=== PATIENT | female | born 1955 | race Caucasian/White ===

== ENCOUNTER 2017-09-23 18:19 | Emergency (ER) | payer MEDICAID ==
[~2017-09-23] VITALS: Ht 160 cm; Wt 63.6 kg
[~2017-09-23 18:19] MED LIST: CYCLOBENZAPRINE10 MG PO; DEPAKOTE125 MG PO; HYDROCODONE-APA1 TAB PO; MIRALAX17 GM PO; MORPHINE S10 MG/5 ML PO; VENTOLIN HFA18 GM INH; VITAMIN B-250 MG PO; ZANTAC150 MG PO
[2017-09-23 18:36] VITALS: Ht 160 cm; Wt 63.6 kg
[2017-09-23] MEDS ORDERED: TORADOL10 MG PO (20:34)
[2017-09-23 21:55] VITALS: BP 129/84
== END 2017-09-23 21:57 | disposition home or self-care (01) ==
LOC: D.ER 18:19
DX: S99.921A Unspecified injury of right foot, initial encounter (principal); W01.0XXA Fall on same level from slipping, tripping and stumbling without subsequent striking against object, initial encounter; Y93.89 Activity, other specified; Y92.019 Unspecified place in single-family (private) house as the place of occurrence of the external cause

== ENCOUNTER 2017-11-12 09:11 | Inpatient (IN) | payer MEDICAID ==
[~2017-11-12] VITALS: Ht 160 cm; Wt 62.1 kg
[~2017-11-12 09:11] MED LIST changes: +TORADOL10 MG PO
[2017-11-12 10:53] LABS: BASOPHILS 0.1 % (0-2); EOSINOPHILS 0 % (0-7); HEMATOCRIT 49.1 % (36.0-48.0); HEMOGLOBIN 16.5 g/dL (12-16); IMMATURE GRANULOCYTES 0.2 % (0-5); MCH 30.8 pg (26.0-34.0); MCHC 33.6 g/dL (31.0-37.0); MCV 91.8 fL (80.0-100.0); MEAN PLATELET VOLUME 10.1 fL (7.4-10.4); MONOCYTES 13.5 % (2-11); NEUTROPHILS 78.2 % (40-80); PLATELET COUNT 243 10x3/uL (130-400); RBC 5.35 10x6/uL (4.00-5.40); RDW 13.7 % (11.5-14.5); WBC 12.8 10x3/uL (4.8-10.8)
[2017-11-12 11:00] VITALS: BP 114/66
[2017-11-12 11:10] LABS: ALBUMIN 3.6 g/dL (3.4-5.0); ANION GAP 13.4 mmol/L (8-16); BILIRUBIN - TOTAL 0.63 mg/dL (0.2-1.3); CALCIUM 8.6 mg/dL (8.5-10.1); CARBON DIOXIDE 27.7 mmol/L (21.0-32.0); CREATININE - SERUM 1.1 mg/dL (0.6-1.3); POTASSIUM - SERUM 4.1 mmol/L (3.5-5.1); PROTEIN - SERUM 7.5 g/dL (6.4-8.2)
[2017-11-12 12:18] LABS: APPEARANCE TURBID (CLEAR); BILIRUBIN NEGATIVE (NEGATIVE); COLOR DK YELLOW (YELLOW); GLUCOSE NEGATIVE (NEGATIVE); KETONE NEGATIVE (NEGATIVE); NITRITE POSITIVE (NEGATIVE); PROTEIN TRACE mg/dL (NEGATIVE); SPECIFIC GRAVITY 1.025 (1.005-1.020)
[2017-11-12 12:19] LABS: BACTERIA MANY /hpf (NONE SEEN); CALCIUM OXALATE CRYSTALS 25-50 /hpf (NONE SEEN); EPITHELIAL CELLS 0-5 /hpf (0-5); HYALINE CAST OCC /lpf (NONE SEEN); MUCUS <1+ /lpf (NONE SEEN); RED CELLS - URINE 0-5 /hpf (0-5)
[2017-11-12 13:00] VITALS: BP 104/63
[2017-11-12 15:00] VITALS: BP 109/60
[2017-11-12 16:42] VITALS: BP 146/109
[2017-11-12 16:53] VITALS: BP 106/66
[2017-11-12 20:00] VITALS: BP 106/65
[2017-11-13] VITALS: BP 109/60
[2017-11-13 01:50] LABS: APPEARANCE CLOUDY (CLEAR); COLOR DK YELLOW (YELLOW)
[2017-11-13 01:51] LABS: BACTERIA MANY /hpf (NONE SEEN); BILIRUBIN NEGATIVE (NEGATIVE); EPITHELIAL CELLS RARE /hpf (0-5); GLUCOSE NEGATIVE (NEGATIVE); KETONE NEGATIVE (NEGATIVE); NITRITE POSITIVE (NEGATIVE); PROTEIN NEGATIVE (NEGATIVE); RED CELLS - URINE 0-5 /hpf (0-5); UROBILINOGEN NORMAL (NORMAL); WHITE CELLS - URINE 25-50 /hpf (0-5)
[2017-11-13 04:00] VITALS: BP 102/48
[2017-11-13 05:24] LABS: BASOPHILS 0.2 % (0-2); EOSINOPHILS 0.6 % (0-7); HEMATOCRIT 40.4 % (36.0-48.0); IMMATURE GRANULOCYTES 0.2 % (0-5); LYMPHOCYTES 15.3 % (15-50); MCH 29.7 pg (26.0-34.0); MCHC 32.4 g/dL (31.0-37.0); MCV 91.6 fL (80.0-100.0); MEAN PLATELET VOLUME 10.4 fL (7.4-10.4); MONOCYTES 16.5 % (2-11); NEUTROPHILS 67.2 % (40-80); PLATELET COUNT 206 10x3/uL (130-400); RBC 4.41 10x6/uL (4.00-5.40); RDW 13.8 % (11.5-14.5)
[2017-11-13 05:40] LABS: HEMOGLOBIN 13.1 g/dL (12-16); WBC 6.5 10x3/uL (4.8-10.8)
[2017-11-13 06:07] LABS: ANION GAP 10.8 mmol/L (8-16); BILIRUBIN - TOTAL 0.53 mg/dL (0.2-1.3); CALCIUM 7.6 mg/dL (8.5-10.1); CARBON DIOXIDE 25.3 mmol/L (21.0-32.0); CREATININE - SERUM 0.9 mg/dL (0.6-1.3); POTASSIUM - SERUM 4.1 mmol/L (3.5-5.1)
[2017-11-13 06:32] LABS: PROTEIN - SERUM 5.6 g/dL (6.4-8.2)
[2017-11-13 06:33] LABS: ALBUMIN 2.5 g/dL (3.4-5.0)
[2017-11-13 09:06] VITALS: BP 92/49
[2017-11-13 09:19] VITALS: BMI 24.2
[2017-11-13 16:11] VITALS: BP 104/60
[2017-11-13 21:27] VITALS: BP 100/52
[2017-11-14] VITALS: BP 91/51
[2017-11-14 04:00] VITALS: BP 117/62
[2017-11-14 05:45] LABS: BASOPHILS 0.2 % (0-2); EOSINOPHILS 2.8 % (0-7); HEMATOCRIT 36.7 % (36.0-48.0); HEMOGLOBIN 11.9 g/dL (12-16); IMMATURE GRANULOCYTES 0.2 % (0-5); MCHC 32.4 g/dL (31.0-37.0); MCV 92.4 fL (80.0-100.0); MONOCYTES 16.9 % (2-11); NEUTROPHILS 54.9 % (40-80); PLATELET COUNT 190 10x3/uL (130-400); RBC 3.97 10x6/uL (4.00-5.40); RDW 13.7 % (11.5-14.5)
[2017-11-14 06:47] LABS: ALBUMIN 2.2 g/dL (3.4-5.0); ALKALINE PHOSPHATASE 64 U/L (46-116); ALT (SGPT) 11 U/L (10-68); BILIRUBIN - TOTAL 0.44 mg/dL (0.2-1.3); CALC OSMOLALITY 268 mosm/kg (275-300); CALCIUM 7.9 mg/dL (8.5-10.1); CARBON DIOXIDE 23.3 mmol/L (21.0-32.0); CHLORIDE - SERUM 103 mmol/L (98-107); CREATININE - SERUM 0.8 mg/dL (0.6-1.3); GLUCOSE 95 mg/dL (74-106); MAGNESIUM - SERUM 1.9 mg/dL (1.8-2.4); PHOSPHOROUS 1.6 mg/dL (2.5-4.9); PROTEIN - SERUM 5.1 g/dL (6.4-8.2); SODIUM 134 mmol/L (136-145); eGFR NON AFRICAN AMERICAN 77 mL/min (90-120)
[2017-11-14 06:52] LABS: UREA NITROGEN 16 mg/dL (7-18)
[2017-11-14 08:15] VITALS: BP 99/56
[2017-11-14 12:19] VITALS: BP 103/59
[2017-11-14 16:00] VITALS: BP 103/55
[2017-11-15 01:46] VITALS: BP 131/65
[2017-11-15 04:32] LABS: BASOPHILS 0.2 % (0-2); EOSINOPHILS 4.8 % (0-7); HEMATOCRIT 33.5 % (36.0-48.0); HEMOGLOBIN 10.8 g/dL (12-16); IMMATURE GRANULOCYTES 0.2 % (0-5); LYMPHOCYTES 29.5 % (15-50); MCH 29.4 pg (26.0-34.0); MCHC 32.2 g/dL (31.0-37.0); MCV 91.3 fL (80.0-100.0); MEAN PLATELET VOLUME 9.7 fL (7.4-10.4); MONOCYTES 16.4 % (2-11); NEUTROPHILS 48.9 % (40-80); PLATELET COUNT 189 10x3/uL (130-400); RBC 3.67 10x6/uL (4.00-5.40); RDW 13.6 % (11.5-14.5)
[2017-11-15 04:47] LABS: WBC 4.2 10x3/uL (4.8-10.8)
[2017-11-15 05:16] LABS: ALKALINE PHOSPHATASE 60 U/L (46-116); ALT (SGPT) 10 U/L (10-68); BILIRUBIN - TOTAL 0.26 mg/dL (0.2-1.3); CALCIUM 7.5 mg/dL (8.5-10.1); CARBON DIOXIDE 25.9 mmol/L (21.0-32.0); CHLORIDE - SERUM 106 mmol/L (98-107); CREATININE - SERUM 0.6 mg/dL (0.6-1.3); GLUCOSE 88 mg/dL (74-106); MAGNESIUM - SERUM 1.7 mg/dL (1.8-2.4); POTASSIUM - SERUM 3.8 mmol/L (3.5-5.1); PROTEIN - SERUM 4.8 g/dL (6.4-8.2); SODIUM 138 mmol/L (136-145); eGFR NON AFRICAN AMERICAN > 90 mL/min (90-120)
[2017-11-15 05:20] LABS: CALC OSMOLALITY 272 mosm/kg (275-300); UREA NITROGEN 8 mg/dL (7-18)
[2017-11-15 05:43] VITALS: BP 115/59
[2017-11-15 08:20] VITALS: BP 108/67
[2017-11-15 13:16] VITALS: BP 132/64
[2017-11-15 17:05] VITALS: BP 127/67
[2017-11-15 20:35] VITALS: BP 140/59
[2017-11-16 01:28] VITALS: BP 116/53
[2017-11-16 04:19] VITALS: BP 134/64
[2017-11-16 05:08] LABS: BASOPHILS 0.3 % (0-2); EOSINOPHILS 3.9 % (0-7); HEMATOCRIT 32.7 % (36.0-48.0); HEMOGLOBIN 10.5 g/dL (12-16); LYMPHOCYTES 32.5 % (15-50); MCH 29.3 pg (26.0-34.0); MCHC 32.1 g/dL (31.0-37.0); MCV 91.3 fL (80.0-100.0); MEAN PLATELET VOLUME 9.7 fL (7.4-10.4); MONOCYTES 14.1 % (2-11); NEUTROPHILS 48.2 % (40-80); PLATELET COUNT 224 10x3/uL (130-400); RBC 3.58 10x6/uL (4.00-5.40); RDW 13.8 % (11.5-14.5); WBC 3.8 10x3/uL (4.8-10.8)
[2017-11-16 05:51] LABS: ALKALINE PHOSPHATASE 59 U/L (46-116); ALT (SGPT) 10 U/L (10-68); CALCIUM 7.6 mg/dL (8.5-10.1); CARBON DIOXIDE 24.6 mmol/L (21.0-32.0); CHLORIDE - SERUM 108 mmol/L (98-107); CREATININE - SERUM 0.6 mg/dL (0.6-1.3); GLUCOSE 88 mg/dL (74-106); POTASSIUM - SERUM 3.6 mmol/L (3.5-5.1); PROTEIN - SERUM 4.6 g/dL (6.4-8.2); SODIUM 140 mmol/L (136-145); eGFR NON AFRICAN AMERICAN > 90 mL/min (90-120)
[2017-11-16 05:59] LABS: CALC OSMOLALITY 274 mosm/kg (275-300); UREA NITROGEN 5 mg/dL (7-18)
[2017-11-16 08:20] VITALS: BP 130/64
[2017-11-16 12:16] VITALS: BP 131/43
[2017-11-16 16:29] VITALS: Ht 160 cm; Wt 62.1 kg
[2017-11-16 16:33] VITALS: BP 144/82
[2017-11-16 21:22] VITALS: BP 153/82
[2017-11-17 04:16] VITALS: BP 144/76
[2017-11-17 04:52] LABS: BASOPHILS 0.2 % (0-2); HEMATOCRIT 34.8 % (36.0-48.0); HEMOGLOBIN 11.3 g/dL (12-16); LYMPHOCYTES 27.4 % (15-50); MCH 29.4 pg (26.0-34.0); MCHC 32.5 g/dL (31.0-37.0); MCV 90.6 fL (80.0-100.0); MEAN PLATELET VOLUME 9.6 fL (7.4-10.4); MONOCYTES 13.4 % (2-11); PLATELET COUNT 250 10x3/uL (130-400); RBC 3.84 10x6/uL (4.00-5.40); RDW 13.9 % (11.5-14.5)
[2017-11-17 04:53] LABS: WBC 6.1 10x3/uL (4.8-10.8)
[2017-11-17 05:14] LABS: ALBUMIN 2.2 g/dL (3.4-5.0); ALKALINE PHOSPHATASE 65 U/L (46-116); BILIRUBIN - TOTAL 0.25 mg/dL (0.2-1.3); CALC OSMOLALITY 274 mosm/kg (275-300); CALCIUM 7.6 mg/dL (8.5-10.1); CHLORIDE - SERUM 108 mmol/L (98-107); CREATININE - SERUM 0.6 mg/dL (0.6-1.3); GLUCOSE 86 mg/dL (74-106); POTASSIUM - SERUM 3.4 mmol/L (3.5-5.1); PROTEIN - SERUM 4.9 g/dL (6.4-8.2); SODIUM 140 mmol/L (136-145); UREA NITROGEN 4 mg/dL (7-18); eGFR NON AFRICAN AMERICAN > 90 mL/min (90-120)
[2017-11-17 05:16] LABS: ALT (SGPT) 17 U/L (10-68)
[2017-11-17 09:42] VITALS: BP 130/69
[2017-11-17 15:09] VITALS: BP 145/74
[2017-11-17 17:29] VITALS: BP 147/66
[2017-11-17 20:35] VITALS: BP 152/79
[2017-11-18 00:31] VITALS: BP 130/79
[2017-11-18 04:42] VITALS: BP 154/86
[2017-11-18 08:28] VITALS: BP 123/77
[2017-11-18 13:35] VITALS: BP 116/71
[2017-11-18 16:42] VITALS: BP 134/82
[2017-11-18 17:12] LABS: APPEARANCE CLEAR (CLEAR); BILIRUBIN NEGATIVE (NEGATIVE); COLOR YELLOW (YELLOW); GLUCOSE NEGATIVE (NEGATIVE); KETONE NEGATIVE (NEGATIVE); NITRITE NEGATIVE (NEGATIVE); PROTEIN NEGATIVE (NEGATIVE); UROBILINOGEN NORMAL (NORMAL)
[2017-11-18 17:13] LABS: BACTERIA FEW /hpf (NONE SEEN); WHITE CELLS - URINE 0-5 /hpf (0-5)
[2017-11-18 20:36] VITALS: BP 128/74
[2017-11-19 01:08] VITALS: BP 147/85
[2017-11-19] MEDS ORDERED: LEVAQUIN500 MG PO (08:09)
[2017-11-19] MEDS ORDERED: FLAGYL500 MG PO (08:10)
[2017-11-19 08:46] VITALS: BP 153/86
== END 2017-11-19 11:06 | disposition home health service (06) | DRG 392 ==
LOC: D.ER 09:11 → D.MS 14:58
PROVIDERS: Family Medicine
DX: K57.92 Diverticulitis of intestine, part unspecified, without perforation or abscess without bleeding (principal); N39.0 Urinary tract infection, site not specified; I10 Essential (primary) hypertension; J43.9 Emphysema, unspecified; K21.9 Gastro-esophageal reflux disease without esophagitis; K52.9 Noninfective gastroenteritis and colitis, unspecified; K22.0 Achalasia of cardia; K44.9 Diaphragmatic hernia without obstruction or gangrene; Z86.73 Personal history of transient ischemic attack (TIA), and cerebral infarction without residual deficits